=== PATIENT | male | born 1995 | race Caucasian/White ===

== ENCOUNTER → 2017-02-04 | Outpatient (CLI) | payer OTHER | LOC: US 10:00 | DX: N50.819 Testicular pain, unspecified (principal); R10.9 Unspecified abdominal pain; N50.89 Other specified disorders of the male genital organs | CPT/HCPCS: 76700; 76870 ==

== ENCOUNTER → 2021-05-05 | Outpatient (CLI) | payer OTHER | LOC: KOH-I 14:33 | DX: M25.561 Pain in right knee (principal) | CPT/HCPCS: 73564 ==

== ENCOUNTER 2021-07-10 15:26 | Emergency (ER) | payer OTHER ==
[~2021-07-10] VITALS: Ht 180.3 cm; Wt 129.3 kg
[2021-07-10 16:46] LABS: HEMOGLOBIN 14.1 gm/dl (14.0-17.5); RED BLOOD COUNT 4.54 M/UL (4.20-5.50); WHITE BLOOD COUNT 3.6 K/UL (4.5-11.0)
[2021-07-10 17:06] LABS: BUN/CREATININE RATIO 9 (0-10)
[2021-07-10] MEDS ORDERED: VENTOLIN HFA 66.7 GM INH (18:58)
[2021-07-10] MEDS ORDERED: DELSYM30 MG/5 ML PO (18:58)
== END 2021-07-10 19:20 | disposition home or self-care (01) ==
LOC: ER1 15:26
PROVIDERS: Physician Assistant Medical
DX: Z23 Encounter for immunization (principal); U07.1 COVID-19; Z88.0 Allergy status to penicillin; Z88.8 Allergy status to other drugs, medicaments and biological substances
CPT/HCPCS: 36600; 71045; 80053; 82803; 83605; 85025; 87040; 99285; M0243

== ENCOUNTER 2021-12-04 17:46 | Emergency (ER) | payer SELFPAY ==
[~2021-12-04 17:46] MED LIST: DELSYM30 MG/5 ML PO; VENTOLIN HFA 66.7 GM INH
== END 2021-12-04 19:56 | disposition left against medical advice (07) ==
LOC: ER1 17:46
DX: Z53.21 Procedure and treatment not carried out due to patient leaving prior to being seen by health care provider (principal)